=== PATIENT | female | born 1975 | race Caucasian/White ===

== ENCOUNTER → 2017-01-13 | Outpatient (CLI) | payer MEDICAID ==
[~2017-01-13] MED LIST: FUROSEMIDE 40 MG/4 ML VIAL ONE; HYDR-3533 PO
--- NOTE | 2017-01-13 14:14 | RADRPT ---
EXAM DATE/TIME: 01/13/2017 12:34 [facility] COMPARISON: No previous studies available for comparison. INDICATIONS : History of renal stones with left side lithotripsy 1 year ago. New onset left flank pain. ORAL CONTRAST: No oral contrast ingested. RADIATION DOSE: 3.73 CTDIvol (mGy) MEDICAL HISTORY: Renal calculi. SURGICAL HISTORY: Lithotripsy ENCOUNTER: Initial ACUITY: 1 week PAIN SCALE: 3/10 LOCATION: Left flank TECHNIQUE: Volumetric scanning of the abdomen and pelvis was performed. Using automated exposure control and ad justment of the mA and/or kV according to patient size, radiation dose was kept as low as reasonably achievable to obtain optimal diagnostic quality images. FINDINGS: There appears to be global atrophy of the left kidney. There is cystic change in the central aspect of the left kidney. There is some calcifications within the cystic change being most prominent inferiorly measur ing up to 1 cm. The cystic change in the central aspect of the left kidney may be from a dilated collecting syst em with renal stones. There are small calcifications within the proximal ureter. There are at least three small c alcifications measuring up to 4 mm. There are some focal areas of calcification in the periphery of the right kidn ey likely representing small non-obstructing stones measuring no more than 4 mm. No dilatation of the right co llecting system is seen. The liver, spleen, pancreas and adrenal glands are unremarkable. There is a T-shaped IUD in place in the uterus. No pelvis masses are seen. The bowel is unremarkable. The bony structures are intact. The lung bas es are clear. CONCLUSION: 1. Global atrophy of the left kidney. There is prominent cystic change occupying much of the centra l left kidney likely related to a dilated collecting system. There are stones seen in the collecting system measuring up to 1 cm at the inferior collecting system. There are at least three 4 mm stones in the proximal left ureter. 2. Suspected non-obstructing right renal stones. Morgan Pope MD on January 13, 2017 at 13:14 Board Certified Radiologist. This report was verified electronically.
--- NOTE | 2017-01-13 15:44 | RADRPT ---
EXAM DATE/TIME: 01/13/2017 13:10 [facility] COMPARISON: CT ABDOMEN & PELVIS W/O CONTRAST, January 13, 2017, 12:34. RENOGRAM W/PHARM (DPTA/LASIX), August 28, 2015, 8:25. INDICATIONS : Left kidney atrophy. DOSE: 21.0 mCi Tc99m DTPA IV MEDICATION: 40 mg Lasix IV MEDICAL HISTORY : None SURGICAL HISTORY : Lithiotripsy. ENCOUNTER: Initial ACUITY: 1 day PAIN SCALE: 0/10 LOCATION: Bilateral lower quadrant TECHNIQUE: Dynamic images were performed in the posterior projection for a total of 28 minutes. FINDINGS: There is very poor perfusion to the left kidney. There is partial obstruction to the right kidney. There is not enough excretion on the left to exclude the high-grade long-standing obstruction. Differential function is 90% on the right and 10% on the left. T. one half on the right is 21.6. CONCLUSION: Function on the left as described above. Deyvi John MD FACR on January 13, 2017 at 15:39 Board Certified Radiologist. This report was verified electronically.
== END ==
LOC: HRAD 12:19
PROVIDERS: ATTEND Urology
DX: N26.1 Atrophy of kidney (terminal) (principal)
CPT/HCPCS: 74176; 78708; A9539; J1940

== ENCOUNTER → 2017-10-27 | Outpatient (CLI) | payer MEDICAID ==
[~2017-10-27] MED LIST changes: -FUROSEMIDE 40 MG/4 ML VIAL ONE
--- NOTE | 2017-10-27 13:29 | RADRPT ---
EXAM DATE/TIME: 10/27/2017 12:42 [facility] COMPARISON: CT ABDOMEN & PELVIS W/O CONTRAST, January 13, 2017, 12:34. INDICATIONS : Left nephrolithiasis ORAL CONTRAST: No oral contrast ingested. RADIATION DOSE: 7.27 CTDIvol (mGy) MEDICAL HISTORY : Renal calculi. SURGICAL HISTORY : None. ENCOUNTER: Initial ACUITY: 1 day PAIN SCALE: 4/10 LOCATION: Left abdomen TECHNIQUE: Volumetric scanning of the abdomen and pelvis was performed. Using automated exposure control and ad justment of the mA and/or kV according to patient size, radiation dose was kept as low as reasonably achievable to obtain optimal diagnostic quality images. DICOM format image data is available electro nically for review and comparison. FINDINGS: LOWER LUNGS: The visualized lower lungs are clear. LIVER: Homogeneous density without lesion. There is no dilation of the biliary tree. No calcified gallston es. SPLEEN: Normal size without lesion. PANCREAS: Within normal limits. KIDNEYS: The right kidney remains normal in size and shape with stable small nonobstructing right renal calcul i. The left kidney is small and atrophic with diffuse cortical thinning. There are multiple cortical and central calcifications again noted and the findings are not significantly changed. ADRENAL GLANDS: Within normal limits. VASCULAR: There is no aortic aneurysm. BOWEL/MESENTERY: The stomach, small bowel, and colon demonstrate no acute abnormality. There is no free intraperitone al air or fluid. ABDOMINAL WALL: Within normal limits. RETROPERITONEUM: There is no lymphadenopathy. BLADDER: No wall thickening or mass. REPRODUCTIVE: Within normal limits. An intrauterine device is again noted. INGUINAL: There is no lymphadenopathy or hernia. MUSCULOSKELETAL: Within normal limits for patient age. CONCLUSION: 1. Stable appearance of the right kidney with multiple small nonobstructing calculi. 2. Small atrophic left kidney with multiple calcifications again noted. Evan Lobato MD on October 27, 2017 at 13:25 Board Certified Radiologist. This report was verified electronically.
== END ==
LOC: HRAD 12:22
PROVIDERS: ATTEND Urology
DX: N20.0 Calculus of kidney (principal)
CPT/HCPCS: 74176

== ENCOUNTER → 2018-02-02 | Day surgery (SDC) | payer MEDICAID ==
[~2018-02-02] VITALS: Ht 144.8 cm; Wt 48.8 kg
[~2018-02-02] MED LIST changes: +CHLORHEXIDINE GLUCONATE 2 % 1 PACK (2 CLOTHS) TOPICAL PRN; +DEXAMETHASONE SOD PHOS 4 MG/ML VIAL IV ONE; -HYDR-3533 PO; +LACTATED RINGER'S 1000 ML IV PRN; +LIDOCAINE HCL 1% PF 5 ML SYRINGE OTHER ONE; +METOPROLOL TARTRATE 25 MG TAB PO PRN; +MIDAZOLAM HCL 2 MG/2 ML VIAL ONE; +ONDANSETRON HCL 4 MG/2 ML VIAL IV PUSH ONE; +PHENYLEPH/NS 1000 MCG/10 ML SYR IV ONE; +POVIDONE IODINE 5% (ANTISEPSIS KIT) 4 APPLICATIONS EACH NARE PRN; +PROPOFOL 200 MG/20 ML AMP IV ONE; +PROPOFOL 500 MG/50 ML INJ 50 ML ONE; +SODIUM CHLORID 0.9% 500 ML IV PRN; +ceFAZolin 1,000 MG/NS 100 ML IV SCH
[2018-02-02 08:40] LABS: AUTOMATED NEUTROPHIL # 3.1 TH/MM3 (1.8-7.7); BASOPHIL # 0.1 TH/MM3 (0-0.2); BASOPHIL % 2.4 % (0.0-2.0); EOSINOPHIL # 0.2 TH/MM3 (0-0.4); EOSINOPHIL % 4.6 % (0.0-4.0); HEMATOCRIT 35.8 % (35.0-46.0); HEMOGLOBIN 12.5 GM/DL (11.6-15.3); LYMPHOCYTE # 1.4 TH/MM3 (1.0-4.8); MEAN CELL VOLUME 91.1 FL (80.0-100.0); MEAN CORPUSCULAR HEMOGLOBIN 31.7 PG (27.0-34.0); MEAN CORPUSCULAR HGB CONC 34.8 % (32.0-36.0); MEAN PLATELET VOLUME 6.7 FL (7.0-11.0); MONOCYTE # 0.4 TH/MM3 (0-0.9); PLATELET COUNT 216 TH/MM3 (150-450); RED BLOOD COUNT 3.93 MIL/MM3 (4.00-5.30); RED CELL DISTRIBUTION WIDTH 12.2 % (11.6-17.2); WHITE BLOOD COUNT 5.3 TH/MM3 (4.0-11.0)
--- NOTE | 2018-02-02 08:49 | RADRPT ---
EXAM DATE/TIME: 02/02/2018 08:13 [facility] COMPARISON: ABDOMEN KUB ONLY, October 09, 2015, 8:58. INDICATIONS : Pre op ESWL. MEDICAL HISTORY : None. SURGICAL HISTORY : None. ENCOUNTER: Initial ACUITY: 1 day PAIN SCORE: 0/10 LOCATION: Left abdomen. FINDINGS: Supine view of the abdomen was performed. The abdominal bowel gas pattern is normal. There is a mode rate amount of stool throughout the colon. No definite calcifications are seen overlying the kidneys. However, the kidneys are predominantly obscured by bowel gas and stool. There is an IUD in the pelvi s. The lung bases are grossly clear. The bony structures are grossly intact. CONCLUSION: 1. No definite calcifications are seen overlying the kidneys however they are predominantly obscured by bowel gas and stool bilaterally. 2. The bowel gas pattern is within normal limits. 3. IUD in the pelvis. Hema Tyler MD on February 02, 2018 at 8:46 Board Certified Radiologist. This report was verified electronically.
--- NOTE | 2018-02-02 11:45 | PD.OP ---
Operative Report Date of Surgery: Feb 02, 2018 Preoperative Diagnosis: Left renal calculi Postoperative Diagnosis: Same Procedure: Left extracorporeal shockwave lithotripsy Anesthesia: MAC Surgeon: Yonathan Astorga Cullet Crusher And Washer(s): None Resident Surgeon: None Operation and Findings: 42-year-old female with history of nephrolithiasis. CT scan demonstrated left renal calculi present with a large stone in the lower pole. Decision was made for the patient undergo left extrapleural shockwave lithotripsy. Risk and benefits were discussed preoperatively and she was willing to proceed. Patient was brought to the operating room and placed on the operating table in the supine position. She received preprocedure antibiotics and MAC anesthesia was administered. Under fluoroscopic imaging guidance the stones were visualized large lower pole stone was visualized under fluoroscopic and ultrasound guidance. A small therapy commenced and the patient received a total of 2500 shocks up to a power level 5. Good fragmentation of the stone was visualized on fluoroscopic imaging guidance. She tolerated the procedure well and was woken and transferred recovery in stable condition. She will follow-up in the office in a few weeks and obtain a CT scan prior to her appointment. Yonathan Astorga DO Feb 02, 2018 11:45
[2018-02-02 12:34] VITALS: BP 134/70; PULSE 80; RESP 16; TEMP 97.8; O2SAT 97
== END | disposition home or self-care (01) ==
LOC: HSDC 07:52
PROVIDERS: ATTEND Urology
DX: N20.0 Calculus of kidney (principal)
CPT/HCPCS: 00873; 50590; 74018; 85025; J0690; J1100; J2250; J2370; J2405; J3010; J7120

== ENCOUNTER → 2018-02-24 | Day surgery (SDC) | payer MEDICAID ==
[~2018-02-24] VITALS: Ht 144.8 cm; Wt 48.9 kg
[~2018-02-24] MED LIST changes: +ACETAMINOPHEN 1000 MG/100 ML 100 ML IV ONE; -DEXAMETHASONE SOD PHOS 4 MG/ML VIAL IV ONE; +DO NOT ADM ANY ANTICOAGULANT DRUGS PRN; +INSULIN HUMAN REGULAR 1,000 UNITS/10 ML VIAL SQ PRN; -LIDOCAINE HCL 1% PF 5 ML SYRINGE OTHER ONE; +MORPHINE SULFATE 2 MG/ML SYRINGE IV PUSH PRN; -ONDANSETRON HCL 4 MG/2 ML VIAL IV PUSH ONE; +ONDANSETRON HCL 4 MG/2 ML VIAL IV PUSH PRN; -PHENYLEPH/NS 1000 MCG/10 ML SYR IV ONE; -PROPOFOL 200 MG/20 ML AMP IV ONE; -PROPOFOL 500 MG/50 ML INJ 50 ML ONE; +oxyCODONE/ACETAMINOPHEN 5 MG/325 MG TAB PO PRN
--- NOTE | 2018-02-24 10:31 | PD.OP ---
Operative Report Date of Surgery: Feb 24, 2018 Preoperative Diagnosis: Left renal and ureteral calculi with hydronephrosis Postoperative Diagnosis: Same Procedure: Cystoscopy with left retrograde pyelogram and left double-J stent insertion Anesthesia: General LMA Surgeon: Yonathan Astorga Retail Store Associate(s): None Resident Surgeon: None Operation and Findings: 42-year-old female with history of nephrolithiasis and a poorly functioning left kidney. Recent CT scan demonstrated small stones within the left kidney and a small ureteral calculus causing obstruction with hydronephrosis. Decision was made to bring the patient to the operating room to undergo cystoscopy left retrograde pyelogram and left double-J stent insertion. Risk and benefits were discussed preoperatively and she is willing to proceed. The patient was brought to the operating room and identified by myself as Maddy Kauffman. She is placed in the dorsal lithotomy position, prepped and draped in sterile fashion, received preprocedure antibiotics and general LMA anesthesia was a professor of social work. 22 Ivorian cystoscope was inserted in the bladder and huntley cystoscopy did not reveal any abnormalities. A 5 Ivorian open-ended Pollack catheter was inserted into the distal left ureteral orifice and retrograde pyelogram was performed demonstrating obstruction at the area of the UPJ. A 0.35 sensor wire was then passed up through the catheter with a good curl in the kidney. A 6 Ivorian 20 cm stent was then placed on the left side in good position. She tolerated the procedure well and was extubated and transferred recovery in stable condition. She will follow-up in the office in 2 weeks to undergo a CT scan prior to her visit. Yonathan Astorga DO Feb 24, 2018 10:31
[2018-02-24 12:23] VITALS: BP 131/82; PULSE 70; RESP 18; TEMP 97.4; O2SAT 100
== END | disposition home or self-care (01) ==
LOC: HSDC 08:13
PROVIDERS: ATTEND Urology
DX: N13.2 Hydronephrosis with renal and ureteral calculous obstruction (principal)
CPT/HCPCS: 00910; 52332; 74420; C1769; C2617; J0131; J2250; J3010; J7120

== ENCOUNTER → 2018-03-16 | Outpatient (CLI) | payer MEDICAID ==
--- NOTE | 2018-03-16 14:23 | RADRPT ---
EXAM DATE/TIME: 03/16/2018 13:06 [facility] COMPARISON: CT ABDOMEN & PELVIS W/O CONTRAST, October 27, 2017, 12:42. INDICATIONS : Left flank pain. ORAL CONTRAST: No oral contrast ingested. RADIATION DOSE: 3.67 CTDIvol (mGy) MEDICAL HISTORY : Renal calculi. SURGICAL HISTORY : Lithotripsy, ureteral stent, IVU. ENCOUNTER: Initial ACUITY: 3 days PAIN SCALE: 5/10 LOCATION: Left flank TECHNIQUE: Volumetric scanning of the abdomen and pelvis was performed. Using automated exposure control and ad justment of the mA and/or kV according to patient size, radiation dose was kept as low as reasonably achievable to obtain optimal diagnostic quality images. DICOM format image data is available electro nically for review and comparison. FINDINGS: Left kidney/ureter: The left kidney is atrophic. There is a ureteral stent within the collecting system. There are multip le stones evident within the collecting system of the left kidney. The largest of these measures 7 mm in size. The left ureter is followed throughout its course. There are at least 2 punctate stone frag ments seen adjacent to the stent proximally. These measure less than 1 mm. The ureter appears normal in caliber. Right kidney/ureter: The right kidney is normal in size. There are 2 punctate calcifications seen which appear to represen t some calcification of the renal pyramids. No definite discrete stone is seen within the collecting system. The right ureter is followed from its course and is unremarkable in appearance. Bladder: No stones are identified within the bladder. Reproductive: Note is made of an IUD. CT source data: A limited portion of the lung base visualized is clear. The portions of liver and spleen visualized a re unremarkable. The pancreas and adrenal glands are intact. There is no retroperitoneal adenopathy. No free air or free fluid is seen. CONCLUSION: 1. The left kidney is atrophic. There is a ureteral stent in place on the left. There are multiple st ones seen within the collecting system of left kidney and at least 2 punctate calcifications seen adj acent to the stent in the proximal left ureter. There is no significant hydronephrosis. The overall a mount of stone burden appears slightly less than seen on previous of 10/27/17. The stent is new since that time. 2. There are 2 punctate areas of calcification within the right renal cortex probably representing ca lcification of the renal pyramids. No discrete stones are seen. 3. Incidental IUD. Cory John MD on March 16, 2018 at 14:10 Board Certified Radiologist. This report was verified electronically.
== END ==
LOC: HRAD 12:29
PROVIDERS: ATTEND Urology
DX: N20.0 Calculus of kidney (principal)
CPT/HCPCS: 74176

== ENCOUNTER → 2018-03-29 | Day surgery (SDC) | payer MEDICAID ==
[~2018-03-29] VITALS: Ht 144.8 cm; Wt 49.4 kg
[~2018-03-29] MED LIST changes: +AMPICILLIN 1 GM/NS 100 ML IV SCH; +APREPITANT 40 MG CAP ONE; +APREPITANT 40 MG CAP PO ONE; +BELLADONNA ALKALOIDS/OPIUM 60 MG SUPP RECTAL ONE; +DEXAMETHASONE SOD PHOS 4 MG/ML VIAL IV ONE; +GENTAMICIN INJ 80 MG in SODIUM CHLORIDE 0.9% INJ 100 ML IV SCH; +GLYCOPYRROLATE 1 MG/5 ML SYRINGE IV PUSH ONE; -INSULIN HUMAN REGULAR 1,000 UNITS/10 ML VIAL SQ PRN; +LIDOCAINE HCL 1% PF 5 ML SYRINGE OTHER ONE; -MORPHINE SULFATE 2 MG/ML SYRINGE IV PUSH PRN; +MORPHINE SULFATE 4 MG/ML INJ IV PUSH PRN; +NEOSTIGMINE 5 MG/5 ML SYRINGE IV PUSH ONE; +ONDANSETRON HCL 4 MG/2 ML VIAL IV PUSH ONE; +PHENYLEPH/NS 1000 MCG/10 ML SYR IV ONE; +PROPOFOL 200 MG/20 ML AMP IV ONE; +ROCURONIUM INJ 50 MG/5 ML SYRINGE IV PUSH ONE; +SCOPOLAMINE 1.5 MG PATCH ONE; +SUGAMMADEX SODIUM 200 MG/2 ML VIAL IV PUSH ONE; -ceFAZolin 1,000 MG/NS 100 ML IV SCH; +ePHEDrine/NS 25 MG/5 ML SYRINGE IV ONE
[2018-03-29 13:19] LABS: AUTOMATED NEUTROPHIL # 3.4 TH/MM3 (1.8-7.7); BASOPHIL # 0.1 TH/MM3 (0-0.2); BASOPHIL % 1.2 % (0.0-2.0); EOSINOPHIL # 0.3 TH/MM3 (0-0.4); EOSINOPHIL % 5.1 % (0.0-4.0); HEMATOCRIT 33.1 % (35.0-46.0); HEMOGLOBIN 11.8 GM/DL (11.6-15.3); LYMPH % 27.5 % (9.0-44.0); LYMPHOCYTE # 1.5 TH/MM3 (1.0-4.8); MEAN CELL VOLUME 89.1 FL (80.0-100.0); MEAN CORPUSCULAR HEMOGLOBIN 31.7 PG (27.0-34.0); MEAN CORPUSCULAR HGB CONC 35.6 % (32.0-36.0); MEAN PLATELET VOLUME 6.7 FL (7.0-11.0); MONOCYTE # 0.3 TH/MM3 (0-0.9); NEUT % 60.2 % (16.0-70.0); PLATELET COUNT 191 TH/MM3 (150-450); RED BLOOD COUNT 3.71 MIL/MM3 (4.00-5.30); RED CELL DISTRIBUTION WIDTH 12.3 % (11.6-17.2); WHITE BLOOD COUNT 5.6 TH/MM3 (4.0-11.0)
--- NOTE | 2018-03-29 13:41 | PD.OP ---
Operative Report Date of Surgery: March 29, 2018 Preoperative Diagnosis: Left ureteral and left renal stones Postoperative Diagnosis: Same Procedure: Cystoscopy with left retrograde pyelogram, left ureteroscopy with stone extraction of left ureteral and renal stones. Left double-J stent exchange Anesthesia: MIRIANA Surgeon: Yonathan Astorga Nitric Acid Concentrator Operator(s): None Resident Surgeon: None Operation and Findings: 42-year-old female with history of calcium phosphate and oxalate stones who underwent a left percutaneous nephrolithotomy approximately 2 years ago. She has some small residual stones within the left kidney which were causing some hydronephrosis on recent CT scan. She underwent cystoscopy with left double-J stent insertion. She was noted to have some residual stones within the left kidney and decision made to bring the patient to the operating room to undergo cystoscopy with left ureteroscopy and possible laser lithotripsy of stones with stone extraction and left double-J stent insertion. Risk and benefits were discussed preoperatively and she is willing to proceed. Patient was brought to the operating room and identified by myself as Maddy Kauffman. She was placed in the dorsolithotomy position, prepped and draped in usual sterile fashion, received preprocedure antibiotics and general endotracheal tube anesthesia was administered. 22 Rwandan cystoscope was inserted in the bladder huntley cystoscopy did not reveal any abnormalities within the bladder. The left ureter stent was identified using the alligator grasper was brought to the urethral meatus. A 0.35 sensor wire was then passed through the stent and up into the kidney. The stent was removed over the wire. The flexible ureteroscope was then passed up the ureter and a few small stones were removed with the nitinol basket. The ureteral access sheath was then passed over the wire, up to the area of the left UPJ. The flexible ureteroscope was then passed through the ureteral access sheath and then huntley renal endoscopy was performed. A few small stones were identified and retrieved with a nitinol basket. Stones were also noted to be embedded into the carrasco of the kidney. These could not be removed. Once the stones were cleared, then a retrograde pyelogram was performed which did not show any filling defects. The ureteroscope was removed and a wire was passed through the ureteral access sheath. The wire was in good position within the kidney. The ureteral access sheath was then removed. The cystoscope was backloaded over the wire and a 25 cm 6 Rwandan left double-J stent was left in good position. She tolerated procedure well and was woken and transferred recovery in stable condition. She will follow-up in 1 week to undergo cystoscopy with stent pull in the office. Yonathan Astorga DO March 29, 2018 13:41
[2018-03-29 15:16] VITALS: BP 150/97; PULSE 81; RESP 18; TEMP 97.5; O2SAT 98
== END | disposition home or self-care (01) ==
LOC: HSDC 11:01
PROVIDERS: ATTEND Urology
DX: N20.2 Calculus of kidney with calculus of ureter (principal); Z01.818 Encounter for other preprocedural examination
CPT/HCPCS: 00918; 52332; 52352; 74420; 82365; 82370; 85025; 88300; C1769; C2617; J0131; J0290; J1100; J1580; J2250; J2370; J2405; J2710; J3010; J7120; J8501